=== PATIENT | female | born 1935 ===

== ENCOUNTER 2017-05-18 00:50 | Emergency (ER) | payer MEDICARE, OTHER ==
[2017-05-18 01:33] VITALS: BMI 21.9
[2017-05-18 01:36] VITALS: BP 137/79; TEMP 98.8; O2SAT 98
[2017-05-18] MEDS ORDERED: Sodium Chloride 0.9% 500 ML IV ONE (01:45)
[2017-05-18] MEDS ORDERED: Sodium Chloride 0.9% 1,000 ML ONE (01:58)
[2017-05-18 02:17] LABS: BASO % 0.3 % (0.0-2.0); EOS % 0.2 % (0.0-4.0); HEMOGLOBIN 13.7 g/dL (11.0-16.0); LYMPH # 0.9 K/uL (1.0-4.3); LYMPH % 14.5 % (20.0-40.0); MEAN CELL VOLUME 91.7 fL (81.0-99.0); MEAN CORPUSCULAR HEMOGLOBIN 30.7 pg (27.0-31.0); MEAN CORPUSCULAR HGB CONC 33.5 g/dL (33.0-37.0); MEAN PLATELET VOLUME 8.8 fL (7.2-11.7); MONO # 0.4 K/uL (0.0-0.8); MONO % 6.4 % (0.0-10.0); NEUT # 4.7 K/uL (1.8-7.0); NEUT % 78.6 % (50.0-75.0); RBC 4.47 Mil/uL (3.80-5.20); RED CELL DISTRIBUTION WIDTH 13.3 % (11.5-14.5)
[2017-05-18 02:20] LABS: ALBUMIN 3.9 g/dL (3.5-5.0)
[2017-05-18 02:22] LABS: GFR AFRICAN-AMERICAN > 60; GFR NON-AFRICAN AMERICAN > 60
[2017-05-18 02:23] LABS: ALT/SGPT 44 U/L (9-52); AST/SGOT 39 U/L (14-36); BLOOD UREA NITROGEN 16 mg/dL (7-17)
[2017-05-18 02:24] LABS: MAGNESIUM 1.9 mg/dL (1.6-2.3)
[2017-05-18 02:26] LABS: SQUAMOUS EPITHIAL < 1 /hpf (0-5); URINE BILIRUBIN NEGATIVE (NEGATIVE); URINE BLOOD NEGATIVE (NEGATIVE); URINE CLARITY Clear (Clear); URINE COLOR Colorless (YELLOW); URINE GLUCOSE (UA) NORMAL (Normal); URINE LEUKOCYTE ESTERASE TRACE Leu/uL (Negative); URINE NITRATE NEGATIVE (NEGATIVE); URINE PROTEIN NEGATIVE (NEGATIVE); URINE UROBILINOGEN NORMAL mg/dL (0.2-1.0)
[2017-05-18 02:29] LABS: BARBITURATES, UR NEGATIVE (NEGATIVE); BENZODIAZEPINES, UR NEGATIVE (NEGATIVE)
[2017-05-18 02:32] LABS: OPIATES, UR NEGATIVE (NEGATIVE); PHENCYCLIDINE, UR NEGATIVE (NEGATIVE)
[2017-05-18 02:38] LABS: B-TYPE NATRIURETIC PEPTIDE 126 pg/mL (0-900)
[2017-05-18] MEDS ORDERED: Potassium Chloride 20 mEq ER Tab PO STA (03:05)
[2017-05-18] MEDS ORDERED: Calcium Carbonate 500 mg Chewable Antacid Tab PO STA (03:05)
[2017-05-18] MEDS ORDERED: Potassium Chloride 20 mEq ER Tab PO ONE (03:14)
[2017-05-18 03:23] VITALS: PULSE 83; RESP 14
--- NOTE | 2017-05-18 03:39 | C.PDOC ---
Time Seen by Provider: 05/18/17 01:35 Chief Complaint (Nursing): Palpitations History Per: Patient Onset/Duration Of Symptoms: Hrs, Intermittent Episodes Current Symptoms Are (Timing): Better Quality Of Symptoms: Rapid Heart Rate Severity: Moderate Exacerbating Factor(s): Pos: None Additional History Per: Prior Records Past Medical History Reviewed: Historical Data, Nursing Documentation, Vital Signs Vital Signs: Last Vital Signs Temp 98.8 F 05/18/17 01:31 Pulse 83 05/18/17 03:23 Resp 14 05/18/17 03:23 BP 137/79 05/18/17 01:31 Pulse Ox 98 05/18/17 03:23 - Medical History PMH: Arthritis, HIV, HTN, Pancreatitis, Chronic Kidney Disease (Right kidney removed 1997) Family History: States: Unknown Family Hx - Social History Hx Tobacco Use: No Hx Alcohol Use: No Hx Substance Use: No - Immunization History Hx Influenza Vaccination: Yes Hx Pneumococcal Vaccination: Yes Review Of Systems Except As Marked, All Systems Reviewed And Found Negative. Constitutional: Negative for: Fever, Weakness Cardiovascular: Positive for: Palpitations. Negative for: Chest Pain Respiratory: Negative for: Shortness of Breath, Hemoptysis Gastrointestinal: Negative for: Vomiting, Abdominal Pain Musculoskeletal: Negative for: Neck Pain, Back Pain, Leg Pain Skin: Negative for: Rash Neurological: Negative for: Weakness, Numbness, Seizures, Altered Mental Status Physical Exam - Physical Exam Appears: Non-toxic, No Acute Distress Skin: Normal Color, Warm, Dry, No Rash Head: Atraumatic, Normacephalic Eye(s): bilateral: PERRL, EOMI Neck: Normal ROM, Supple Cardiovascular: Rhythm Regular Respiratory: Normal Breath Sounds, No Accessory Muscle Use Gastrointestinal/Abdominal: Soft, No Tenderness Back: No CVA Tenderness Extremity: Normal ROM, No Calf Tenderness Neurological/Psych: Oriented x3, Normal Motor, Normal Sensation ED Course And Treatment - Laboratory Results Result Diagrams: 05/18/17 02:08 05/18/17 02:08 Interpretation Of Abnormal: Mild hypokalemia and mild hypocalcemia. ECG: Interpreted By Me, Viewed By Me ECG Rhythm: Sinus Rhythm, Nonspecific Changes ECG Interpretation: No Acute Changes Rate From EC O2 Sat by Pulse Oximetry: 98 Pulse Ox Interpretation: Normal Reassessment Condition: Improved Disposition Counseled Patient/Family Regarding: Studies Performed, Diagnosis, Need For Followup, Rx Given - Disposition Referrals: Marian Muniz MD [Non-Staff] - Disposition: HOME/ ROUTINE Disposition Time: 03:40 Condition: IMPROVED Additional Instructions: Follow up with your doctor for further evaluation and treatment, including possible Holter monitor. Return to the ER if you develop chest pain, shortness of breath, dizziness, pass out, worsening of symptoms or if you have any other concerns. Prescriptions: Calcium Carbonate/Vitamin D3 [Calcium 600-Vit D3 800 Tablet] 1 each PO DAILY # 30 tablet Instructions: Palpitations (ED) - Clinical Impression Clinical Impression: Palpitations
--- NOTE | 2017-05-19 12:44 | CARD ---
APPROVED REPORT EKG Measurement Heart [id number] <Conclusion> Normal sinus rhythm T wave abnormality, consider inferior ischemia Abnormal ECG
== END 2017-05-18 04:00 | disposition home or self-care (01) ==
LOC: C.ER 00:50
DX: R00.2 Palpitations (principal); E87.6 Hypokalemia
CPT/HCPCS: 80053; 81001; 83735; 83880; 84443; 84484; 85025; 93005; 96360; 99285; G0480; J7040